=== PATIENT | female | born 1955 | race Asian ===

== ENCOUNTER 2019-10-18 22:48 | Emergency (ER) | payer MEDICAID ==
[~2019-10-18] VITALS: Ht 160 cm; Wt 59.1 kg
[~2019-10-18 22:48] MED LIST: ACET-2247 PO; ATOR40TA28 PO; LISI-660 PO
[2019-10-18] MEDS ORDERED: CETI5TAB14 PO (23:05)
[2019-10-19] MEDS ORDERED: CARISOPRODOL 350 MG TABLET PO ONE (00:15)
[2019-10-19] MEDS ORDERED: CloNIDine HCL 0.2 MG TABLET PO ONE (00:15)
[2019-10-19] MEDS ORDERED: MAGNESIUM SULFATE 2 GM/WATER 50 ML IV ONE (00:15)
[2019-10-19] MEDS ORDERED: SODIUM CHLORIDE 0.9% 1,000 ML IV ONE (00:15)
[2019-10-19] MEDS ORDERED: KETOROLAC TROMETHAMINE 30 MG/ML VIAL IVP ONE (00:15)
[2019-10-19 01:18] LABS: BASOPHILS % (AUTO) 0.4 % (0.0-2.0); EOSINOPHILS % (AUTO) 0.4 % (1.0-6.0); HEMATOCRIT 41.4 % (36-46); LYMPHOCYTES # (AUTO) 1.5 K/uL (1.0-4.8); MEAN CORPUSCULAR HEMOGLOBIN 30.6 pg (26.0-34.0); MEAN CORPUSCULAR HGB CONC 33.8 G/dL (31.0-37.0); MEAN CORPUSCULAR VOLUME 90 fL (80-100); MONOCYTES # (AUTO) 0.7 K/uL (0.1-1.0); MONOCYTES % (AUTO) 9.9 % (2.0-9.0); NEUTROPHILS # (AUTO) 4.6 K/uL (1.8-7.7); NEUTROPHILS % (AUTO) 67.3 % (40.0-70.0); PLATELET COUNT (AUTO) 268 K/uL (150-450); RED BLOOD CELL COUNT(AUTO) 4.58 MIL/uL (4.00-5.20); RED CELL DISTRIBUTION WIDTH 13.1 % (11.5-14.5)
[2019-10-19 01:25] LABS: ANION GAP 6 mmol/L (8-16); CALCIUM, TOTAL 9.5 mg/dL (8.8-10.5); CARBON DIOXIDE 30 mmol/L (22-29); CHLORIDE 100 mmol/L (98-107); CREATININE 0.61 mg/dL (0.60-1.30); GLOMERULAR FILTR. RATE CALC > 60 mL/min (>60); GLUCOSE,RANDOM 139 mg/dL (70-110); POTASSIUM 3.7 mmol/L (3.5-5.1); SODIUM SERUM 136 mmol/L (136-145); UREA NITROGEN, BLOOD 5 mg/dL (7-18)
[2019-10-19 01:30] LABS: ALANINE AMINOTRANSFERASE 20 U/L (12-78); ALBUMIN 4.4 g/dL (3.4-5.0); ALKALINE PHOSPHATASE 74 U/L (46-116); ASPARTATE AMINOTRANSFERASE 18 U/L (15-37); BILIRUBIN,TOTAL 0.8 mg/dL (0.1-1.0); TOTAL PROTEIN, SERUM 7.9 g/dL (6.4-8.2)
[2019-10-19] MEDS ORDERED: LORazepam 1 MG TABLET PO ONE (02:30)
[2019-10-19 03:07] VITALS: BP 128/70
== END 2019-10-19 03:17 | disposition home or self-care (01) ==
LOC: EMS 22:49
DX: F41.9 Anxiety disorder, unspecified (principal); I10 Essential (primary) hypertension; E78.00 Pure hypercholesterolemia, unspecified
CPT/HCPCS: 36415; 80053; 84484; 85025; 93005; 96365; 96375; 99284; J1885; J3475; J7030

== ENCOUNTER 2025-04-28 10:42 | Emergency (ER) | payer MEDICARE, MEDICAID ==
[~2025-04-28] VITALS: Ht 157.5 cm; Wt 54.5 kg
[~2025-04-28 10:42] MED LIST changes: -ACET-2247 PO; +CETI5TAB14 PO; -LISI-660 PO; +LISI-892 PO
[2025-04-28 10:46] VITALS: TEMP 97.9
[2025-04-28] MEDS ORDERED: LISI5TAB21 PO (10:55)
[2025-04-28] MEDS ORDERED: ATOR20TA65 PO (10:55)
[2025-04-28] MEDS ORDERED: CALC-877 PO (10:55)
[2025-04-28] MEDS ORDERED: LORA10TA7 PO (10:55)
[2025-04-28] MEDS ORDERED: KETO120S13 TP (10:55)
[2025-04-28] MEDS ORDERED: CLON0.2T2 PO (10:55)
[2025-04-28] MEDS ORDERED: ROFL60FO TP (10:55)
[2025-04-28] MEDS ORDERED: CLOB25SO14 TP (10:55)
[2025-04-28 11:14] LABS: PLATELET COUNT (AUTO) 304 K/uL (150-450); RED BLOOD CELL COUNT(AUTO) 4.67 MIL/uL (4.00-5.20); RED CELL DISTRIBUTION WIDTH 13.2 % (11.5-14.5); WHITE BLOOD COUNT (AUTO) 6.3 K/uL (4.5-11.0)
[2025-04-28 11:20] LABS: CALCIUM, TOTAL 8.8 mg/dL (8.8-10.5); CREATININE 0.70 mg/dL (0.60-1.30); GLOMERULAR FILTR. RATE CALC > 60 mL/min (>60); GLUCOSE,RANDOM 177 mg/dL (70-110); SODIUM SERUM 135 mmol/L (136-145); TROPONIN I-HIGH SENSITIVITY 6 ng/L (<51); UREA NITROGEN, BLOOD 10 mg/dL (7-18)
[2025-04-28] MEDS ORDERED: MECL-134 PO (11:46)
[2025-04-28 11:47] VITALS: BP 166/93; PULSE 73; RESP 16; O2SAT 96
[2025-04-28] MEDS: MECLIZINE HCL 25 MG TABLET PO ONE (11:55)
== END 2025-04-28 12:05 | disposition home or self-care (01) ==
LOC: EMS 10:43
DX: R42 Dizziness and giddiness (principal); F41.9 Anxiety disorder, unspecified; I10 Essential (primary) hypertension; E78.00 Pure hypercholesterolemia, unspecified; Z90.721 Acquired absence of ovaries, unilateral; Z98.890 Other specified postprocedural states; Z79.899 Other long term (current) drug therapy
CPT/HCPCS: 80048; 84484; 85025; 93005; 99284